=== PATIENT | male | born 1965 | race Caucasian/White ===

== ENCOUNTER 2020-08-22 15:20 | Outpatient (REF) | payer MEDICARE, BC, SELFPAY ==
--- NOTE | 2020-08-22 15:30 | MR_ITS ---
EXAMINATION: MRI PELVIS WITHOUT CONTRAST CLINICAL INFORMATION: Right sciatica COMPARISON: MRI right hip 10/05/2018 TECHNIQUE: MRI without contrast is performed on the pelvis. FINDINGS: Bone marrow signal is normal. No joint effusions. No stress reaction, fracture, or evidence of avascular necrosis. No muscle strain or muscle tear. No muscle atrophy. The piriformis muscles appear symmetric, perhaps slightly larger on the left proximally. No mass or mass effect along the course of the right lumbosacral plexus or sciatic nerve. The sciatic nerve is normal in size and signal. No adenopathy. No free pelvic fluid. The urinary bladder appears normal. Mild disc desiccation at L4-L5 and L3-L4. IMPRESSION: Unremarkable study. No MR findings to account for the clinical history of right sciatica, piriformis pain.
== END 2020-08-22 15:21 | disposition home or self-care (01) ==
LOC: HO.MRI 15:20
PROVIDERS: Visit Provider Anesthesiology
DX: M25.50 Pain in unspecified joint (principal)
CPT/HCPCS: 72195

== ENCOUNTER → 2020-08-29 16:55 | Outpatient (BNVA) | payer MEDICARE, BC, SELFPAY | PROVIDERS: PCP Internal Medicine Nephrology; Referring Provider Internal Medicine Nephrology; Visit Provider Anesthesiology | DX: M32.9 Systemic lupus erythematosus, unspecified (principal) | CPT/HCPCS: 99213 ==